=== PATIENT | male | born 1955 | race African-American/Black ===

== ENCOUNTER 2019-04-12 21:45 | Emergency (ER) | payer BC ==
--- NOTE | 2019-04-12 22:49 | RADIOLOGY REPORT (SQ) ---
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 COMPARISON: None. FINDINGS: The heart size is within normal limits. No consolidation, pleural effusion, or pneumothorax is seen. No acute bony findings. IMPRESSION: No acute cardiopulmonary disease.
[2019-04-12] MEDS ORDERED: ASPIRIN 81 MG TABLET, CHEWABLE PO ONE (23:27)
--- NOTE | 2019-04-12 23:29 | ER Document Report ---
ED Medical Screen (RME) - General Chief Complaint: Chest Pain Stated Complaint: CHEST PAIN X2 DAYS Time Seen by Provider: 04/12/19 23:27 Primary Care Provider: ESTELA CAMACHO [Primary Care Provider] - Follow up as needed Mode of Arrival: Ambulatory Information source: Patient Notes: Patient presents complaining of cough for the past 3 days. Patient states he has had chest pain as well. states that patient does complain of chest pain longer than he sat the cough for. Patient without any fever nausea or vomiting. Patient denies any shortness of breath or dizziness. Patient does report a history of hypertension. I have greeted and performed a rapid initial assessment of this patient. A comprehensive ED assessment and evaluation of the patient, analysis of test results and completion of the medical decision making process will be conducted by additional ED providers. Physical Exam - Respiratory Respiratory status: No respiratory distress Chest status: Pain on movement, Pain with cough Breath sounds: Nonproductive cough Doctor's Discharge - Discharge Referrals: ESTELA CAMACHO [Primary Care Provider] - Follow up as needed
[2019-04-13 00:19] VITALS: BP 152/90
[2019-04-13 01:43] LABS: ABSOLUTE BASOPHILS # (AUTO) 0.1 10^3/uL (0.0-0.2); ABSOLUTE EOSINOPHILS # (AUTO) 0.3 10^3/uL (0.0-0.6); ABSOLUTE LYMPHOCYTES (AUTO) 2.8 10^3/uL (0.5-4.7); ABSOLUTE MONOCYTES (AUTO) 0.7 10^3/uL (0.1-1.4); ABSOLUTE NEUT (AUTO) 4.2 10^3/uL (1.7-8.2); BASOPHILS % (AUTO) 1.1 % (0-2); EOSINOPHILS % (AUTO) 3.8 % (0-6); HEMATOCRIT 39.6 % (37.9-51.0); HEMOGLOBIN 12.8 g/dL (13.5-17.0); LYMPHOCYTES % (AUTO) 34.5 % (13-45); MEAN CORPUSCULAR HEMOGLOBIN 27.5 pg (27.0-33.4); MEAN CORPUSCULAR HGB CONC 32.4 g/dL (32.0-36.0); MEAN CORPUSCULAR VOLUME 85 fl (80-97); MONOCYTES % (AUTO) 8.4 % (3-13); PLATELET COUNT 306 10^3/uL (150-450); RED BLOOD COUNT 4.67 10^6/uL (4.35-5.55); RED CELL DISTRIBUTION WIDTH 14.7 % (11.5-14.0); SEGMENTED NEUTROPHILS % (AUTO) 52.2 % (42-78); TOTAL CELLS COUNTED % (AUTO) 100 %; WHITE BLOOD COUNT 8.1 10^3/uL (4.0-10.5)
[2019-04-13 02:06] LABS: ALBUMIN 4.3 g/dL (3.5-5.0); ALKALINE PHOSPHATASE 59 U/L (38-126); ANION GAP 12 (5-19); ASPARTATE AMINO TRANSFERASE 25 U/L (17-59); BILIRUBIN,DIRECT 0.1 mg/dL (0.0-0.4); BILIRUBIN,TOTAL 0.4 mg/dL (0.2-1.3); BLOOD UREA NITROGEN 20 mg/dL (7-20); CALCIUM 9.7 mg/dL (8.4-10.2); CARBON DIOXIDE 24 mmol/L (22-30); CHLORIDE 103 mmol/L (98-107); GLUCOSE 117 mg/dL (75-110); POTASSIUM 4.5 mmol/L (3.6-5.0); TOTAL PROTEIN 7.6 g/dL (6.3-8.2)
--- NOTE | 2019-04-13 03:35 | ER Document Report ---
ED General - General Chief Complaint: Chest Pain Stated Complaint: CHEST PAIN X2 DAYS Time Seen by Provider: 04/12/19 23:27 Primary Care Provider: ESTELA CAMACHO [NO LOCAL MD] - Follow up as needed Mode of Arrival: Ambulatory Notes: 64-year-old male presents emergency department complaining of a pain in his chest around his sternum that he states worsens with a cough and with movement of his arms. Otherwise the pain is not there. Denies any prior similar pains, denies any productive cough, denies any shortness of breath, denies any pain with breathing, denies any upper respiratory infection recently. Secondary complaint is that he is a pain has a knot on the back of his neck that has been there for 3 to 4 years. There has been no real change recently but it occasionally drains pus. states it drains pus when she squeezes on it and there are thick spaghetti like strings that come out of it. Denies any pain or redness. Denies any fevers. TRAVEL OUTSIDE OF THE [place] IN LAST 30 DAYS: No - Related Data Allergies/Adverse Reactions: No Known Allergies Allergy (Unverified 04/12/19 23:30) Home Medications: lisinopril/HCTZ. aleve prn Past Medical History - General Information source: Patient - Social History Smoking Status: Former Smoker Chew tobacco use (# tins/day): No Frequency of alcohol use: Rare Drug Abuse: None Family History: Reviewed & Not Pertinent Patient has suicidal ideation: No Patient has homicidal ideation: No Review of Systems - Review of Systems Constitutional: No symptoms reported Cardiovascular: See HPI Respiratory: See HPI Skin: See HPI -: Yes All other systems reviewed and negative Physical Exam - Vital signs Vitals: Temp Pulse Resp BP Pulse Ox 98.0 F 66 18 152/90 H 96 04/12/19 22:04 04/12/19 22:04 04/12/19 22:04 04/12/19 22:04 04/12/19 22:04 Interpretation: Hypertensive - Notes Notes: GENERAL: Alert, interacts well. No acute distress. HEAD: Normocephalic, atraumatic EYES: Pupils equal, round and reactive to light, extraocular movements intact. ENT: Oral mucosa moist, tongue midline. Nares patent, no nasal septal hematoma, TMs intact. NECK: Full range of motion, supple, trachea midline. LUNGS: Clear to auscultation bilaterally, no wheezes, rales or rhonchi, no respiratory distress. HEART: Regular rate and rhythm, no murmurs, gallops, rubs. Pain is not re producible on palpation although it is reproducible with movements of his arms. ABDOMEN: Soft, nontender, nondistended, bowel sounds present in all 4 quadrants. EXTREMITIES: Moves all 4 extremities spontaneously, no edema, radial and dorsalis pedis pulses 2/4 bilaterally. No cyanosis. NEUROLOGICAL: Alert and oriented x3, normal speech, biceps and patellar DTRs 2+ bilaterally. PSYCH: Normal mood, normal affect. SKIN: Warm, Dry, approximately 1 cm nodule noted to the back of the neck, nonfluctuant, not tender to palpation, consistent with sebaceous cyst, no signs of infection. No erythema. Course - Re-evaluation Re-evalutation: 04/13/19 04:47 CBC shows mild anemia with a hemoglobin 12.8, CMP grossly unremarkable, troponin negative, chest x-ray shows no acute process, EKG is nonischemic. Discussed with patient that this may be a muscle spasm from the cough but it may also be costochondritis. Recommended that we treated with steroids and muscle relaxers. Discharged home. - Vital Signs Vital signs: Temp Pulse Resp BP Pulse Ox 98.0 F 66 13 152/90 H 100 04/12/19 22:04 04/12/19 22:04 04/13/19 02:00 04/12/19 22:04 04/13/19 02:00 - Laboratory Result Diagrams: 04/13/19 01:30 04/13/19 01:30 Laboratory results interpreted by me: 04/13/19 04/13/19 01:30 01:30 Hgb 12.8 L RDW 14.7 H Glucose 117 H - EKG Interpretation by Me Additional EKG results interpreted by me: 04/13/19 04:48 EKG shows sinus rhythm at a rate of 61, left axis deviation, normal intervals, no ST segment elevations or depressions, no T wave inversions per my interpretation. Discharge - Discharge Clinical Impression: Chest pain, mid sternal Condition: Stable Disposition: HOME, SELF-CARE Additional Instructions: Chest Wall Pain Your chest pain has been diagnosed as coming from the chest wall. This is often caused by straining the muscles or joints in the chest during physical activity, direct trauma, coughing, or vigorous vomiting. Persons with arthritis are especially prone to this type of pain, due to inflammation of the cartilage joints near the breast bone. Occasionally, no cause can be found. Rest from strenuous physical activity. This kind of chest pain is usually made worse by movement of the chest. Depending on the symptoms, we may prescribe medicine for pain, muscle relaxation, and antiinflammatory effects. If the pain is new, and seems to be due to muscle strain, cold packs can help. Otherwise, apply gentle warmth to the painful area for 15 minutes every hour or two. You should contact the doctor immediately if things change. Further evaluation is needed if you develop a fever or cough, if the nature of the pain changes, or if you become short of breath. Please take the steroids as directed until they are gone. You may also use the muscle relaxers. If the muscle relaxers make you tired do not work while you are taking them. Prescriptions: Prednisone [Deltasone 20 mg Tablet] 2 tab PO DAILY 4 Days tablet Cyclobenzaprine HCl [Flexeril 10 mg Tablet] 10 mg PO TIDP PRN #15 tab PRN Reason: Forms: Return to Work
[2019-04-13] MEDS ORDERED: PREDNISONE 20 MG TABLET PO ONE (04:44)
--- NOTE | 2019-04-13 07:22 | EKG REPORT ---
SEVERITY:- ABNORMAL ECG - SINUS RHYTHM BORDERLINE LEFT AXIS DEVIATION NONSPECIFIC INFERIOR ST-T CHANGES EARLY PRECORDIAL TRANSITION, R/O OLD TRUE POST CT, CLINICAL CORRELATION NEEDED. : Confirmed by: Romero Deluna MD 13-Apr-2019 07:21:34
== END 2019-04-13 05:01 | disposition home or self-care (01) ==
LOC: ER 21:45
DX: R07.9 Chest pain, unspecified (principal)
CPT/HCPCS: 93005; 99285; 36415; 83690; 85025; 80053; 84484; 71046; 93010; J7512